=== PATIENT | female | born 1990 | race Caucasian/White ===

== ENCOUNTER 2021-06-15 12:28 | Outpatient (CLI) | payer OTHER, SELFPAY ==
[2021-06-15 13:51] LABS: SARS-CoV-2 RNA PCR Negative (Negative)
== END 2021-06-15 12:29 | disposition home or self-care (01) ==
PROVIDERS: PCP Physician Assistant; Visit Provider Physician Assistant
DX: B34.9 Viral infection, unspecified (principal); Z20.822 Contact with and (suspected) exposure to COVID-19
CPT/HCPCS: C9803; U0003; U0005

== ENCOUNTER 2021-07-27 10:44 | Outpatient (CLI) | payer OTHER, SELFPAY ==
[2021-07-27 11:53] LABS: SARS-CoV-2 RNA PCR Negative (Negative)
== END 2021-07-27 10:45 | disposition home or self-care (01) ==
LOC: CHSLAB 10:46
PROVIDERS: PCP Physician Assistant; Visit Provider Physician Assistant
DX: Z20.822 Contact with and (suspected) exposure to COVID-19 (principal)
CPT/HCPCS: C9803; U0003; U0005

== ENCOUNTER 2021-11-18 19:10 | Emergency (ER) | payer OTHER, SELFPAY ==
[2021-11-18 19:20] VITALS: BP 112/75; PULSE 88; RESP 18; TEMP 36.2; O2SAT 99
--- NOTE | 2021-11-18 19:39 | ED.ALLEREA ---
HPI - Allergic Reaction General Chief complaint: Allergic Reaction Stated complaint: dots on tops of feet, side of legs, arms Time Seen by Provider: 11/18/21 19:41 Source: patient Mode of arrival: ambulatory Limitations: no limitations History of Present Illness HPI narrative: this is a 31-year-old female that was being treated with for an abscess and was initially started on penicillin 2 weeks ago, the abscess cleared up but patient has history of psoriasis and was given a Z-Michel by her primary care physician and over the next 24hours the patient developed a rash that is itchy with no shortness of breath no fever chills no nausea vomiting or abdominal pain. The patient did finish her course of amoxicillin and Z-Michel. Patient did take Claritin [id number]. complaint: allergic reaction Onset (ago): hour(s) Exposure: medication Symptoms: rash and itching Severity: mild Related Data Allergies Allergy/AdvReac Type Severity Reaction Status Date / Time No Known Allergies Allergy Verified 11/18/21 19:27 Review of Systems Review of Systems: All systems reviewed & are unremarkable except as noted in HPI and below PMFSH Past Medical History Medical History Psoriasis Exam Const: General: no acute distress and alert Orientation/consciousness: patient oriented x3 HENMT: Head: normal to inspection Eyes: Conjunctivae: conjunctivae normal Pupils: Equal, round and reactive pupils present Neck: Neck: normal visual inspection, no lymphadenopathy and no meningeal signs Chest: Chest palpation & inspection: normal inspection of the chest Resp: Effort & Inspection: normal respiratory effort Auscultation: clear to auscultation bilaterally Cardio: Rate: regular rate Rhythm: regular rhythm GI: GI Palp: Yes Soft to palpation Percussion: Yes normal to percussion : General: Yes no CVA tenderness Urinary Catheter: Urinary Catheter: patent and draining Back/Spine/Pelvis: Back: no CVA tenderness Skin: General skin exam: normal color Other: rash diffuse mainly on her lower legs chest that is intensely itchy Neuro: General: patient oriented x3, moves all extremities and no meningeal signs Extrem: General: normal to inspection and no pedal edema Psych: Affect: normal affect Attitude: cooperative Course Course Emergency Course: patient received a dose of IM Depo-Medrol the patient has been taking Claritin advised patient to continue the Pepcid that she has been taking along with Claritin/ Benadryl along with some prednisone that will be sent to her pharmacy otherwise the patient stable there is no shortness of breath no nausea vomiting abdominal pain. Critical Care Time Critical Care Time Critical Care Time: No Discharge Plan Discharge Clinical Impression: Allergic reaction Qualifiers: Encounter type: initial encounter Qualified Code(s): T78.40XA - Allergy, unspecified, initial encounter Patient Disposition: Home, Self-Care Condition: Stable Instructions: Antibiotic Form, General Allergic Reaction (ED) Additional Instructions: Advised to take medicine as prescribed, can take Claritin and Pepcid and follow with primary care physician or return to the nearest emergency department if symptoms of shortness of breath develops. Prescriptions: New prednisone 20 mg tablet 20 mg PO DAILY Qty: 5 RF: 0 Follow-up/Referrals: Adarsh,JAIR Marcus [Primary Care Provider] - Time of Disposition: 19:45
[2021-11-18] MEDS: methylPREDNISolone ACETATE 40 MG/ML VIAL 80 MG IM (19:52)
[2021-11-18 20:01] VITALS: BP 118/74; PULSE 78; RESP 18; TEMP 36.2; O2SAT 99
== END 2021-11-18 20:06 | disposition home or self-care (01) ==
PROVIDERS: Emergency Provider Emergency Medicine; PCP Physician Assistant
DX: T78.40XA Allergy, unspecified, initial encounter (principal)
CPT/HCPCS: 96372; 99283; J1030

== ENCOUNTER 2025-06-18 07:14 | Emergency (ER) | payer OTHER, SELFPAY ==
[2025-06-18 07:16] VITALS: BP 124/75; PULSE 71; RESP 16; TEMP 36.6; O2SAT 100
--- OUTSIDE RECORDS SUMMARY | 2025-06-18 07:19 | XMS_ITS | Clinical Summary ---
Author Organization [facility] Address [address] [place] [address] Care Team Providers Care Try On Baster Name Role Phone Werner Altamirano Primary Care Provider [phone] Allergies No known active allergies Medications acetaminophen (TYLENOL) 500 mg tablet Take 1 tablet (500 mg total) by mouth every 6 (six) hours as needed for pain Active ibuprofen (ADVIL,MOTRIN) 600 mg tablet Take 1 tablet (600 mg total) by mouth every 6 (six) hours as needed for pain Active cholecalciferol (VITAMIN D-3) 2000 unit capsule Take 1 capsule (2,000 Units total) by mouth daily 30 capsule 09/11/2020 Active aspirin 81 mg enteric coated tabletIndicatio ns:prevention of thrombosis Take 1 tablet (81 mg total) by mouth 2 (two) times a day for 14 days 28 tablet 09/11/2020 Active triamcinolone (KENALOG) 0.5 % cream 08/03/2020 Active Active Problems Problem Noted Date Diagnosed Date Painful orthopaedic hardware 06/28/2020 Overview (06/28/2020): Added automatically from request for surgery [id number] Post-traumatic osteoarthritis of right ankle Overview (06/28/2020): Added automatically from request for surgery [id number] Atopic dermatitis 07/24/2017 Surgical History Surgery Date Site/Laterality Comments OTHER SURGICAL HISTORY 09/04/2004 - 09/03/2005 : OTHER SURGICAL HISTORY 09/04/2008 - 09/03/2009 : OTHER SURGICAL HISTORY : OTHER SURGICAL HISTORY Sterilization: L/S bilat. salpingectomy ANKLE SURGERY Right ankle surgery OTHER SURGICAL HISTORY rt ankle, hardware removal 11-10-16 TUBAL LIGATION FRACTURE SURGERY Medical History Medical History Date Comments Hx Other Medical ; Outc ome: 40W0D week 6lb(s) Female Hx Other Medical ; Outc ome: 37W0D week 6lb(s) 2 oz Male Hx Other Medical ; Outc ome: 6lb(s) 10 oz Male Hx Other Medical Sterilization Seizures (HCC) Family History Medical History Relation Name Comments Breast cancer Maternal Grandmother Cancer , breast; Relation Name Status Comments Maternal Grandmother Social History Tobacco Use Types Packs/Day Years Used Date Smoking Tobacco: Heavy Smoker Cigarettes 0.5 12 Smokeless Tobacco: Current Comments:Smoking History Pac ks/day: 0.5 Packs Alcohol Use Standard Drinks/Week Comments Yes 0 (1 standard drink = 0.6 oz pur e alcohol) occasionally Comments Unknown Sex and Gender Information Value Date Recorded Sex Assigned at Not on file Legal Sex Female 1:12 AM [employer] Gender Identity Not on file Sexual Orientation Not on file Obstetrics History Last Filed Vital Signs Vital Sign Reading Time Taken Comments Blood Pressure 106/78 01/21/2023 2:07 PM CDT Pulse 96 01/21/2023 2:07 PM CDT Temperature 37.5 C (99.5 F) 01/21/2023 2:07 PM CDT Respiratory Rate 16 01/21/2023 2:07 PM CDT Oxygen Saturation 94% 01/21/2023 2:07 PM CDT Inhaled Oxygen Concentration - - Weight 91.2 kg (201 lb) 01/21/2023 2:07 PM CDT Height 167.6 cm (5' 6) 01/21/2023 2:07 PM CDT Body Mass Index 32.44 01/21/2023 2:07 PM CDT Plan of Treatment Health Maintenance Due Date Last Done Comments Cervical Cancer Screening 1988 Depression Screening 1988 DTaP/Tdap/Td Vaccine (1 - Tdap) 1999 Varicella Vaccines (1 of 2 - 13+ 2-dose series) 2001 Hepatitis B Screening 2006 Regular Well Visit/Exam 18-64 2006 Pneumococcal vaccine <65 (1 of 2 - PCV) 2007 HPV Vaccines (1 - 3-dose SCDM series) 2015 Influenza Vaccine (#1) 2025 06/18/2019 Hepatitis C Screening Completed 11/21/2014, 014 Procedures Procedure Name Priority Date/Time Associated Diagnosis Comments SERUM HEPATITIS C AB Routine 11/21/2014 11:04 AM CDT from Last 3 Months or Most Recently Relevant to Health Maintenance Results * Serum Hepatitis C ab (11/21/2014 11:04 AM CDT) HCV ab Negative Negative HISTORICAL RESULTS Serum 11/21/2014 11:0 4 AM CDT Vincenzo Kumar MD LAB BLOOD ORDERABLES Final Result Performing Organization Address City/State/[facility] Co de Phone Number HISTORICAL RESULTS from Last 3 Months or Most Recently Relevant to Health Maintenance Insurance [facility] Care Teams Try On Baster Relationship Specialty Start Date End Date Werner Altamirano PA [address] [place] [address] PCP - General 11/10/16
--- NOTE | 2025-06-18 07:21 | ED.SKABFB ---
HPI - Skin/Abscess/Foreign Bdy General Chief complaint: Unspecified Stated complaint: can't get ring off left hand finger Time Seen by Provider: 06/18/25 07:19 Source: patient Mode of arrival: ambulatory Limitations: no limitations History of Present Illness HPI narrative: Patient is a 34-year-old female with her wedding ring stuck on the left ring finger due to her psoriasis and swelling. Patient gets morning swelling and forgot to take her ring off last night. It is stuck at this time. complaint: other (Her wedding ring is stuck on her left hand ring finger) Onset (ago): day(s) (1) Location: L hand Severity: moderate Severity scale (1-10): 4 Quality: sharp Pain Consistency: constant Relieving factors: none Exacerbating factors: other (Excess swelling from her psoriasis) Context: other (Patient is having left hand ring finger swelling from her psoriasis and further her wedding ring is stuck at the time) Associated symptoms: denies other symptoms Treatments prior to arrival: other (Attempts to remove ring unsuccessful at home) Related Data Home Medications ?Medication ?Instructions ?Recorded ?Confirmed ?Last Taken ?Type escitalopram oxalate 10 mg tablet 10 mg PO DAILY 06/18/25 06/18/25 Unknown History Allergies Allergy/AdvReac Type Severity Reaction Status Date / Time No Known Allergies Allergy Verified 06/18/25 07:28 Review of Systems Review of Systems: All systems reviewed & are unremarkable except as noted in HPI and below Constitutional: Constitutional: Reports no additional constitutional complaints Eyes: Eyes: Reports no additional eye complaints ENT: Reports system reviewed and no additional complaints, except as documented Cardiovascular: Cardiovascular: Reports no additional cardiovascular complaints Respiratory: Respiratory: Reports no additional respiratory complaints Gastrointestinal: Gastrointestinal: Reports no additional gastrointestinal complaints Genitourinary: Genitourinary: Reports no additional female genitourinary complaints Musculoskeletal: Musculoskeletal: Reports no additional musculoskeletal complaints Integumentary/Breasts: Skin/Breast: Reports system reviewed and no additional complaints, except as docu Neurologic: Reports system reviewed and no additional complaints, except as documented Psychiatric: Psychiatric: Reports no additional psychiatric complaints Endocrine: Endocrine: Reports no additional endocrine complaints Hematologic/Lymphatic: Hematologic/Lymphatic: Reports no additional hematologic/lymphatic complaints Allergic/Immunologic: Allergic/Immunologic: Reports no additional allergic/immunologic complaints [facility] Past Medical History Medical History Psoriasis Exam Const: General: healthy appearing Nutritional Appearance: well nourished Orientation/consciousness: patient oriented x3 HENMT: Head: normal to inspection Ears: external ears normal Face/Nose/Sinus: Normal external nose present Eyes: Conjunctivae: conjunctivae normal Pupils: Equal, round and reactive pupils present EOM: EOMs intact bilaterally Neck: Neck: normal visual inspection Chest: Chest palpation & inspection: normal inspection of the chest Skin: General skin exam: No normal color Rashes: no rashes Wounds: wound noted Other: Patient has multiple areas of psoriasis around her hands that are irritated and inflamed and especially around her ring finger on the left hand with a ring stuck at the time is inflamed and slightly erythema with pain and tenderness Neuro: General: patient oriented x3, moves all extremities and no meningeal signs Extrem: General: normal to inspection Psych: Mental Status: mental status grossly normal Affect: normal affect Attitude: cooperative Course Vital Signs Vital signs: Vital Signs Temperature 36.6 C 06/18/25 07:16 Pulse Rate 71 06/18/25 07:16 Respiratory Rate 16 06/18/25 07:16 Blood Pressure 124/75 06/18/25 07:16 Pulse Oximetry 100 06/18/25 07:16 Temperature 36.6 C 06/18/25 07:16 Pulse Rate 71 06/18/25 07:16 Respiratory Rate 16 06/18/25 07:16 Blood Pressure 124/75 06/18/25 07:16 Pulse Oximetry 100 06/18/25 07:16 MDM - Skin/Abscess/Foreign Bdy MDM Narrative Medical decision making narrative: Patient is a 34-year-old female with a left hand ring finger ring stuck due to swelling from psoriasis. Nurse was able to remove ring successfully intact. She used lubrication. Antibiotic ointment was placed due to some skin avulsion at a psoriatic area in the same vicinity of the ring; patient wishes to have prednisone refill to assist with her excess swelling and her psoriasis. Discharge Plan Discharge Clinical Impression: Psoriasis Finger abrasion Qualifiers: Encounter type: initial encounter Qualified Code(s): S60.419A - Abrasion of unspecified finger, initial encounter Patient Disposition: Home Condition: Stable Instructions: Soft Tissue Foreign Body (ED) Patient Language: [place] Prescriptions: New prednisone 20 mg tablet 40 mg PO DAILY 4 Days Qty: 8 0RF No Action escitalopram oxalate 10 mg tablet 10 mg PO DAILY Follow-up/Referrals: Adarsh,JAIR Marcus [Primary Care Provider] Time of Disposition: 07:22
[2025-06-18] MEDS: NEOMYCIN/POLYMYXIN/BACITRACIN OINTMENT PACKET 1 PACKET TOPICAL (07:36)
== END 2025-06-18 07:39 | disposition home or self-care (01) ==
PROVIDERS: Emergency Provider Emergency Medicine; PCP Physician Assistant
DX: S60.441A External constriction of left index finger, initial encounter (principal); X58.XXXA Exposure to other specified factors, initial encounter
CPT/HCPCS: 99283